=== PATIENT | male | born 1990 | race Caucasian/White ===

== ENCOUNTER 2023-09-14 01:24 | Emergency (ER) | payer OTHER ==
[~2023-09-14] VITALS: Ht 182.9 cm; Wt 101.3 kg
[2023-09-14 01:24] VITALS: TEMP 97.1
[2023-09-14] MEDS ORDERED: AMOX500C (01:38)
[2023-09-14] MEDS ORDERED: IBUP80TA (01:38)
[2023-09-14] MEDS ORDERED: ACET-645 (01:38)
[2023-09-14 02:59] LABS: BASO % 0.5 % (0.0-1.0); EOS # 0.1 10^3/uL (0.0-0.5); EOS % 2.1 % (0.0-3.0); HEMATOCRIT 39.4 % (42.0-52.0); HEMOGLOBIN 13.6 g/dl (13.5-17.5); LYMPH # 1.1 10^3/uL (1.5-5.0); MEAN CORPUSCULAR HEMOGLOBIN 30.1 pg (27.0-33.0); MEAN CORPUSCULAR HGB CONC 34.5 g/dl (32.0-36.5); MEAN CORPUSCULAR VOLUME 87.2 fl (80.0-96.0); MONO # 0.3 10^3/uL (0.0-0.8); MONO % 6.2 % (2.0-8.0); NEUTROPHILS # 2.7 10^3/uL (1.5-8.5); RED BLOOD COUNT 4.52 10^6/uL (4.30-6.10); WHITE BLOOD COUNT 4.2 10^3/uL (4.0-10.0)
[2023-09-14 03:03] LABS: INR 1.2; PARTIAL THROMBOPLASTIN TIME 33.1 SECONDS (24.8-34.2); PROTHROMBIN TIME 14.9 SECONDS (12.5-14.5)
[2023-09-14 03:05] LABS: PLATELET COUNT, AUTOMATED 97 10^3/uL (150-450)
[2023-09-14] MEDS: TRANEXAMIC ACID 100 MG/ML 10ML VIAL ONE (04:21)
[2023-09-14 05:21] VITALS: BP 137/85; O2SAT 97
== END 2023-09-14 06:40 | disposition home or self-care (01) ==
LOC: M ED 01:24
DX: L76.22 Postprocedural hemorrhage of skin and subcutaneous tissue following other procedure (principal); K08.89 Other specified disorders of teeth and supporting structures; Z79.1 Long term (current) use of non-steroidal anti-inflammatories (NSAID); Z79.2 Long term (current) use of antibiotics